=== PATIENT | male | born 1995 | race Caucasian/White ===

== ENCOUNTER 2016-07-20 22:44 | Emergency (ER) | payer MEDICAID ==
[~2016-07-20] VITALS: Ht 170.2 cm; Wt 78.0 kg
[2016-07-21] MEDS ORDERED: ONDANSETRON 4MG ODT PO ONE (00:15)
[2016-07-21] MEDS ORDERED: MORPHINE SULFATE 10 MG/ML CPJ IM ONE ×2 (00:15→01:45)
[2016-07-21] MEDS ORDERED: TRAMADOL 50MG TABLET PO ONE (03:00)
[2016-07-21 03:20] VITALS: BP 138/97
== END 2016-07-21 04:32 | disposition home or self-care (01) ==
LOC: ER 23:05
DX: S83.106A Unspecified dislocation of unspecified knee, initial encounter (principal); F17.200 Nicotine dependence, unspecified, uncomplicated; F12.10 Cannabis abuse, uncomplicated; W01.0XXA Fall on same level from slipping, tripping and stumbling without subsequent striking against object, initial encounter; Y93.89 Activity, other specified; Y99.8 Other external cause status; Y92.89 Other specified places as the place of occurrence of the external cause
CPT/HCPCS: 27560; 73560; 73700; 96372; 99284; J2270; Q0162; Z7610